=== PATIENT | male | born 1985 | race African-American/Black ===

== ENCOUNTER 2020-12-30 19:54 | Emergency (ER) | payer OTHER ==
[~2020-12-30] VITALS: Ht 185.4 cm; Wt 81.6 kg
--- NOTE | 2020-12-30 19:58 | NUR ---
pt bibself for med refill. pt [id number] breathing evenly and unlabored. pt from out of town and needing refill for herpes medication. pt serenity. md at bedside. wll continue to monitor
[2020-12-30] MEDS ORDERED: VALACYCLOVIR HCL 500 MG TABLET ONE (20:04)
[2020-12-30] MEDS ORDERED: VALA500T PO (20:06)
[2020-12-30] MEDS: VALACYCLOVIR HCL 500 MG TABLET PO ONE (20:06)
--- NOTE | 2020-12-30 20:08 | NUR ---
Patient discharged to home in stable condition. Written and verbal after care instructions given. Patient verbalizes understanding of instruction. pt ambulatory with a steady gait
[2020-12-30 20:12] VITALS: BP 125/72
== END 2020-12-30 20:08 | disposition home or self-care (01) ==
LOC: ER 19:59
DX: B00.9 Herpesviral infection, unspecified (principal)